=== PATIENT | male | born 1995 | race Caucasian/White ===

== ENCOUNTER → 2017-02-13 | Outpatient (CLI) | payer BC ==
--- NOTE | 2017-02-13 13:36 | DIAGNOSTIC IMAGING REPORT ---
SOFT TISS HEAD/NECK-THYROID CLINICAL HISTORY: 21 years-old Male with ENLARGED THYROID. COMPARISON: None available TECHNIQUE: Multiple real time sonographic images of the thyroid were obtained accessing martinez scale appearance and color doppler flow. FINDINGS: MEASUREMENTS: Right lobe: 6.2 x 1.9 x 1.5 cm Left lobe: 6.0 x 1.8 x 1.5 cm Isthmus: 0.4 cm PARENCHYMA: The thyroid parenchymal echotexture is homogeneous. NODULES: No discrete nodules are appreciated. IMPRESSION: Unremarkable sonographic appearance of the thyroid without focal nodule identified. The above report was generated using voice recognition software. It may contain grammatical, syntax or spelling errors. Electronically signed by: Ernesto Molina M.D. 02/13/2017 1:35 PM Dictated Date/Time: 02/13/2017 1:33 PM
== END | disposition home or self-care (01) ==
LOC: C.ULTR 12:56
PROVIDERS: ATTEND Family Medicine
DX: E04.9 Nontoxic goiter, unspecified (principal)